=== PATIENT | female | born 1945 | race Caucasian/White ===

== ENCOUNTER 2017-12-13 07:16 | Day surgery (SDC) | payer MEDICARE ==
[2017-12-07 12:53] VITALS: BP 160/72
[2017-12-07 13:08] LABS: BASOPHILS % (AUTO) 0.5 % (0.0-5.0); EOSINOPHILS % (AUTO) 1.3 % (0.0-8.0); HEMATOCRIT 34.4 % (36-48); LYMPHOCYTES % (AUTO) 27.3 % (21.0-51.0); MEAN CORPUSCULAR HEMOGLOBIN 21.9 pg (27.0-33.0); MEAN CORPUSCULAR HGB CONC 31.9 g/dL (32.0-36.0); MEAN CORPUSCULAR VOLUME 68.8 fL (79-99); MONOCYTES % (AUTO) 6.5 % (3.0-13.0); NEUTROPHILS % (AUTO) 64.4 % (40.0-77.0); PLATELET COUNT (AUTO) 310 K/uL (130-400); RED CELL DISTRIBUTION WIDTH 15.1 % (11.0-15.5)
[2017-12-07 13:13] LABS: CREATININE 0.8 mg/dL (0.5-1.5); POTASSIUM 4.2 mmol/L (3.5-5.1)
[2017-12-07 13:20] LABS: INR 0.92 (0.85-1.15); PARTIAL THROMBOPLASTIN TIME 26.2 SEC (26.3-35.5); PROTHROMBIN TIME 9.7 SEC (9.6-11.6)
[2017-12-07 13:46] LABS: BILIRUBIN,URINE Negative (NEGATIVE); COLOR,URINE Yellow (YELLOW); GLUCOSE, URINE (UA) Negative (NEGATIVE); KETONES,URINE Negative (NEGATIVE); LEUKOCYTE ESTERASE ,URINE Moderate (NEGATIVE); NITRATE,URINE Negative (NEGATIVE); OCCULT BLOOD,URINE Negative (NEGATIVE); PH,URINE 7.5 (5.0-8.0); PROTEIN,URINE Negative (NEGATIVE); UROBILINOGEN,URINE 0.2 mg/dL (0.2-1.0)
[2017-12-07 13:51] LABS: APPEARANCE,URINE SLIGHTLY CLOUDY (CLEAR)
[2017-12-07 13:59] LABS: RBC,URINE None Seen /HPF (0-1)
[2017-12-07 14:00] LABS: BACTERIA,URINE Many /HPF (None Seen); WBC,URINE 26-50 /HPF (0-1)
[~2017-12-13] VITALS: Ht 162.6 cm; Wt 75.5 kg
[2017-12-13] VITALS (18 sets, daily range): BP systolic 97–138; BP diastolic 46–78
[~2017-12-13 07:16] MED LIST: AMLODIPINE PO; CALC-744 PO; CETI10TA57 PO; DICY20TA11 PO; ESCI20TA36 PO; LACT1CAP93 PO; MULT-1203 PO; OMEP20TA25 PO
[2017-12-13] MEDS: CEFAZOLIN SODIUM 1 GM VIAL IVP SCH ×2 (09:30→11:00)
[2017-12-13] MEDS ORDERED: LACTATED RINGERS 1000ML 1,000 ML IV ONE (09:36)
[2017-12-13] MEDS: GENTAMICIN 80 MG/NS 100 ML PB 100 ML IV SCH ×2 (10:43→11:00)
[2017-12-13] MEDS ORDERED: MIRT15TA6 PO (10:51)
[2017-12-13] MEDS ORDERED: PROPOFOL 10 MG/ML 20ML VIAL IV ONE (10:55)
[2017-12-13] MEDS ORDERED: SUCCINYLCHOLINE 200MG/10ML SYR ONE (10:55)
[2017-12-13] MEDS ORDERED: LIDOCAINE PF 2% 5ML ABBOJECT ONE (10:55)
[2017-12-13] MEDS ORDERED: FENTANYL CITRATE PF 50 MCG/1 ML 2ML VIAL ONE ×2 (10:56→11:50)
[2017-12-13] MEDS ORDERED: LIDOCAINE HCL 1% 20 ML VIAL ONE (11:06)
[2017-12-13] MEDS ORDERED: NEOMY SULF/POLYMYXIN B SULFATE 1 ML AMPUL IR ONE (11:06)
[2017-12-13] MEDS ORDERED: EPINEPHRINE 1 MG/ML AMPULE ONE (11:06)
[2017-12-13] MEDS ORDERED: EPHEDRINE SULFATE 50 MG/ML AMPULE ONE (11:15)
[2017-12-13] MEDS ORDERED: ONDANSETRON HCL 4 MG/2 ML VIAL ONE (11:33)
[2017-12-13] MEDS ORDERED: DEXAMETHASONE SOD PHOSPHATE 10MG/ML 1ML VIAL ONE (11:33)
[2017-12-13] MEDS ORDERED: ROCURONIUM BROMIDE 10MG/1ML 5ML VL ONE (11:51)
[2017-12-13] MEDS ORDERED: SULFANILAMIDE 120 GM TUBE VG ONE (11:58)
[2017-12-13] MEDS ORDERED: OCTYL 2-CYANOACRYLATE 1 EACH TP ONE (11:58)
[2017-12-13] MEDS ORDERED: TRAMADOL HCL 50 MG TABLET ONE (13:59)
[2018-02-18] MEDS ORDERED: ventolin hfa IH (16:25)
== END 2017-12-13 16:20 | disposition home or self-care (01) ==
LOC: DAH 07:16
PROVIDERS: ATTEND Urology
DX: N36.42 Intrinsic sphincter deficiency (ISD) (principal); N39.46 Mixed incontinence; Z79.891 Long term (current) use of opiate analgesic; Z79.899 Other long term (current) drug therapy; Z79.1 Long term (current) use of non-steroidal anti-inflammatories (NSAID); I82.890 Acute embolism and thrombosis of other specified veins
CPT/HCPCS: 36415; 57288; 80048; 81001; 85025; 85610; 85730; 87088; 87186; 93005; A4215; A4218; A4344; A4600; A4930; C1771; J0171; J0330; J0690; J1100; J1580; J2001; J2405; J2704; J3010 ×2; J3490 ×3; J7030; J7120

== ENCOUNTER 2018-02-21 06:52 | Day surgery (SDC) | payer MEDICARE ==
[2018-02-18 16:01] VITALS: BP 120/62
[2018-02-18 16:04] LABS: BASOPHILS % (AUTO) 0.6 % (0.0-5.0); EOSINOPHILS % (AUTO) 0.3 % (0.0-8.0); HEMATOCRIT 34.9 % (36-48); LYMPHOCYTES % (AUTO) 7.6 % (21.0-51.0); MEAN CORPUSCULAR HEMOGLOBIN 22.3 pg (27.0-33.0); MEAN CORPUSCULAR VOLUME 69.9 fL (79-99); MONOCYTES % (AUTO) 4.1 % (3.0-13.0); NEUTROPHILS % (AUTO) 87.4 % (40.0-77.0); NUCLEATED RED BLOOD CELLS 0.1 % (0.0-0.19); PLATELET COUNT (AUTO) 358 K/uL (130-400); RED CELL DISTRIBUTION WIDTH 16.3 % (11.0-15.5); WHITE BLOOD COUNT (AUTO) 10.6 K/uL (4.8-10.8)
[2018-02-18 16:05] LABS: APPEARANCE,URINE Clear (CLEAR); BILIRUBIN,URINE Negative (NEGATIVE); COLOR,URINE Yellow (YELLOW); GLUCOSE, URINE (UA) Negative (NEGATIVE); KETONES,URINE Negative (NEGATIVE); LEUKOCYTE ESTERASE ,URINE Negative (NEGATIVE); NITRATE,URINE Negative (NEGATIVE); OCCULT BLOOD,URINE Negative (NEGATIVE); PROTEIN,URINE POS 1+ (NEGATIVE); UROBILINOGEN,URINE 0.2 mg/dL (0.2-1.0)
[2018-02-18 16:15] LABS: CREATININE 1.8 mg/dL (0.5-1.5); POTASSIUM 4.1 mmol/L (3.5-5.1)
[2018-02-18 16:28] LABS: BACTERIA,URINE Few /HPF (None Seen); OTHER CASTS, URINE MIXED CELL CASTS 1+ /LPF (None Seen); RBC,URINE 0-1 /HPF (0-1)
[2018-02-18 16:29] LABS: SQUAMOUS EPITHELIAL CELL,UR Few /HPF (0-2)
[~2018-02-21] VITALS: Ht 165.1 cm; Wt 75.8 kg
[2018-02-21] VITALS (16 sets, daily range): BP systolic 119–150; BP diastolic 58–78
[2018-02-21] MEDS: CEFTRIAXONE SODIUM 1 GM IVP SCH ×2 (06:00→09:30)
[~2018-02-21 06:52] MED LIST changes: -CALC-744 PO; -CETI10TA57 PO; -DICY20TA11 PO; -LACT1CAP93 PO; +MIRT15TA6 PO; -MULT-1203 PO; -OMEP20TA25 PO; +ventolin hfa IH
[2018-02-21] MEDS ORDERED: LACTATED RINGERS 1000ML 1,000 ML IV ONE (08:08)
[2018-02-21] MEDS ORDERED: BOTULINUM TOXIN TYPE A 100 UNITS/VIAL INJ SCH (08:30)
[2018-02-21] MEDS ORDERED: BOTULINUM TOXIN TYPE A 100 UNITS/VIAL ONE (08:49)
[2018-02-21] MEDS ORDERED: PROPOFOL 10 MG/ML 20ML VIAL IV ONE (09:37)
== END 2018-02-21 12:10 | disposition home or self-care (01) ==
LOC: DAH 06:52
PROVIDERS: ATTEND Urology
DX: N39.46 Mixed incontinence (principal); I10 Essential (primary) hypertension; Z90.710 Acquired absence of both cervix and uterus; Z90.49 Acquired absence of other specified parts of digestive tract; Z98.890 Other specified postprocedural states
CPT/HCPCS: 36415; 52287; 80048; 81001; 85025; 87088; 93005; A4215; A4218; A4358; A4600; J0585; J0696; J2704; J7120

== ENCOUNTER 2018-09-05 07:53 | Day surgery (SDC) | payer MEDICARE ==
[2018-09-02 11:55] VITALS: BP 143/67
[2018-09-02 12:14] LABS: APPEARANCE,URINE Clear (CLEAR); BILIRUBIN,URINE Negative (NEGATIVE); COLOR,URINE Yellow (YELLOW); GLUCOSE, URINE (UA) Negative (NEGATIVE); KETONES,URINE Negative (NEGATIVE); LEUKOCYTE ESTERASE ,URINE Trace (NEGATIVE); NITRATE,URINE Positive (NEGATIVE); OCCULT BLOOD,URINE Negative (NEGATIVE); PROTEIN,URINE Negative (NEGATIVE); UROBILINOGEN,URINE 0.2 mg/dL (0.2-1.0)
[2018-09-02 12:23] LABS: CREATININE 0.9 mg/dL (0.5-1.5); POTASSIUM 3.6 mmol/L (3.5-5.1)
[2018-09-02 12:27] LABS: BACTERIA,URINE Moderate /HPF (None Seen); RBC,URINE None Seen /HPF (0-1); WBC,URINE 0-1 /HPF (0-1)
[2018-09-02 12:28] LABS: CALCIUM OXALATE CRYSTALS,UR Rare /LPF (None Seen); SQUAMOUS EPITHELIAL CELL,UR Rare /HPF (0-2)
[2018-09-02 12:35] LABS: BASOPHILS % (AUTO) 0.5 % (0.0-5.0); EOSINOPHILS % (AUTO) 0.2 % (0.0-8.0); HEMATOCRIT 35.9 % (36-48); LYMPHOCYTES % (AUTO) 11.1 % (21.0-51.0); MEAN CORPUSCULAR HEMOGLOBIN 22.2 pg (27.0-33.0); MEAN CORPUSCULAR HGB CONC 31.3 g/dL (32.0-36.0); MEAN CORPUSCULAR VOLUME 70.8 fL (79-99); MONOCYTES % (AUTO) 3.1 % (3.0-13.0); NEUTROPHILS % (AUTO) 85.1 % (40.0-77.0); NUCLEATED RED BLOOD CELLS 0.1 % (0.0-0.19); PLATELET COUNT (AUTO) 337 K/uL (130-400); RED BLOOD CELL COUNT(AUTO) 5.07 MIL/uL (4.00-5.50); WHITE BLOOD COUNT (AUTO) 10.7 K/uL (4.8-10.8)
[~2018-09-05] VITALS: Ht 160 cm; Wt 75.2 kg
[2018-09-05] VITALS (14 sets, daily range): BP systolic 114–150; BP diastolic 58–90
[~2018-09-05 07:53] MED LIST changes: +AMIT25TA9 PO; +CALCIUM PO; +CHOL200013 PO; +COLE1TAB2 PO; +FOLI1TAB15 PO; -MIRT15TA6 PO; +PRED5TAB PO; +TRAZ150T79 PO; +VITAMIN B12 PO; -ventolin hfa IH
[2018-09-05] MEDS ORDERED: CEFTRIAXONE SODIUM 1 GM IVP PRN (08:00)
[2018-09-05] MEDS ORDERED: ZOSYN 3.375GM+NS 50ML 50 ML IV ONE (08:21)
[2018-09-05] MEDS ORDERED: LACTATED RINGERS 1000ML 1,000 ML IV ONE (08:21)
[2018-09-05] MEDS ORDERED: ZOSYN 3.375GM+NS 50ML 50 ML IV SCH (08:45)
[2018-09-05] MEDS ORDERED: BOTULINUM TOXIN TYPE A 100 UNITS/VIAL INJ SCH (09:30)
[2018-09-05] MEDS ORDERED: PROPOFOL 10 MG/ML 20ML VIAL IV ONE (10:20)
[2018-09-05] MEDS ORDERED: LIDOCAINE PF 2% 5ML ABBOJECT ONE (10:20)
[2018-09-05] MEDS ORDERED: LIDOCAINE HCL 2% PF 20 ML JEL DISP.SYRIN MM ONE (10:30)
[2018-09-05] MEDS ORDERED: ONDANSETRON HCL 4 MG/2 ML VIAL ONE (10:35)
[2018-09-05] MEDS ORDERED: DEXAMETHASONE SOD PHOSPHATE 10MG/ML 1ML VIAL ONE (10:35)
[2018-09-05] MEDS ORDERED: EPHEDRINE SULFATE 50 MG/ML AMPULE ONE (10:43)
[2018-09-05] MEDS ORDERED: GLYCOPYRROLATE 1 MG/5 ML SYRINGE ONE (10:50)
== END 2018-09-05 12:52 | disposition home or self-care (01) ==
LOC: DAH 07:53
PROVIDERS: ATTEND Urology
DX: N39.46 Mixed incontinence (principal); R46.3 Overactivity; Z90.49 Acquired absence of other specified parts of digestive tract; J40 Bronchitis, not specified as acute or chronic; I10 Essential (primary) hypertension; Z98.890 Other specified postprocedural states; Z79.899 Other long term (current) drug therapy
CPT/HCPCS: 36415; 52287; 80048; 81001; 85025; 87077; 87088; 87186; 93005; 96365; A4358; A4510; A4600; J0585; J1100; J2001; J2405; J2543; J2704; J3490 ×2; J7120 ×2

== ENCOUNTER 2019-10-27 12:05 | Observation (INO) | payer MEDICARE ==
[~2019-10-27] VITALS: Ht 162.6 cm; Wt 77.1 kg
[~2019-10-27 12:05] MED LIST changes: -AMIT25TA9 PO; +AMIT50TA3 PO; +AMLO2.5T4 PO; -AMLODIPINE PO; +BUDE0.5A8 IH; +CALC600T12 PO; -CALCIUM PO; +CYAN1TAB44 PO; +DOXY100C40 PO; +IPRA3AMP24 IH; +METH4TAB3 PO; +SULF500T8 PO; -VITAMIN B12 PO
[2019-10-27 12:35] LABS: BASOPHILS % (AUTO) 0.7 % (0.0-5.0); EOSINOPHILS % (AUTO) 1.3 % (0.0-8.0); HEMATOCRIT 38.9 % (36-48); LYMPHOCYTES % (AUTO) 22.3 % (21.0-51.0); MEAN CORPUSCULAR HEMOGLOBIN 21.5 pg (27.0-33.0); MEAN CORPUSCULAR HGB CONC 30.8 g/dL (32.0-36.0); MEAN CORPUSCULAR VOLUME 69.7 fL (79-99); MONOCYTES % (AUTO) 9.6 % (3.0-13.0); NEUTROPHILS % (AUTO) 65.6 % (40.0-77.0); PLATELET COUNT (AUTO) 484 K/uL (130-400); RED BLOOD CELL COUNT(AUTO) 5.58 MIL/uL (4.00-5.50); RED CELL DISTRIBUTION WIDTH 15.3 % (11.0-15.5); WHITE BLOOD COUNT (AUTO) 9.2 K/uL (4.8-10.8)
[2019-10-27 12:39] LABS: CREATININE 1.8 mg/dL (0.5-1.5); POTASSIUM 3.4 mmol/L (3.5-5.1)
[2019-10-27 12:42] LABS: INR 0.92 (0.85-1.15); PARTIAL THROMBOPLASTIN TIME 25.7 SEC (26.3-35.5); PROTHROMBIN TIME 9.7 SEC (9.6-11.6)
[2019-10-27 12:43] LABS: ALBUMIN 3.8 g/dL (3.5-5.0); BILIRUBIN,TOTAL 0.7 mg/dL (0.2-1.0); TOTAL PROTEIN, SERUM 7.8 g/dL (6.0-8.3)
[2019-10-27] MEDS ORDERED: ACETAMINOPHEN 325 MG TAB ONE (13:49)
[2019-10-27] MEDS ORDERED: FENTANYL CITRATE PF 50 MCG/1 ML 2ML VIAL ONE (17:07)
[2019-10-27] MEDS ORDERED: ASPIRIN 325 MG TABLET ONE (17:07)
[2019-10-27] MEDS ORDERED: LACTULOSE 20 GM/30 ML UDCUP PO PRN (18:00)
[2019-10-27] MEDS ORDERED: DEXTROSE 50%-WATER 50 ML DISP.SYRIN IV PRN (18:00)
[2019-10-27] MEDS ORDERED: ZOLPIDEM TARTRATE 5 MG TAB PO PRN (18:00)
[2019-10-27] MEDS ORDERED: GUAIFENESIN-DM 200/20 MG 10 ML PO PRN (18:00)
[2019-10-27] MEDS ORDERED: NITROGLYCERIN 0.4 MG SL TAB SL PRN (18:00)
[2019-10-27] MEDS ORDERED: POTASSIUM CHLORIDE 10% ELIXIR 20 MEQ/15 ML UDCUP PO PRN (18:00)
[2019-10-27] MEDS ORDERED: ACETAMINOPHEN 325 MG TAB PO PRN ×2 (18:00)
[2019-10-27] MEDS ORDERED: ONDANSETRON HCL 4 MG/2 ML VIAL IV PRN (18:00)
[2019-10-27] MEDS ORDERED: HYDRALAZINE HCL 20 MG/ML VIAL IV PRN (18:00)
[2019-10-27] MEDS ORDERED: LIDOCAINE HCL 2% VISCOUS 30 ML, MAG HYDROX/AL HYDROX/SIMETH 30 ML, BELLADONNA-PHENOBARB... PO SCH ×3 (18:00)
[2019-10-27] MEDS ORDERED: POTASSIUM CHLORIDE 20MEQ/100ML 100 ML IV PRN (18:00)
[2019-10-27] MEDS ORDERED: GLUCAGON 1MG KIT 1 MG ML IM PRN (18:00)
[2019-10-27] MEDS ORDERED: DiphenhydrAMINE HCL 50 MG/ML VIAL IV PRN (18:00)
[2019-10-27] MEDS ORDERED: LIDOCAINE HCL-MPF 1% 2ML VIAL IV PRN (18:00)
[2019-10-27] MEDS ORDERED: MORPHINE SULFATE 2 MG/ML 1ML SYG IV PRN (18:00)
[2019-10-27] MEDS ORDERED: LIDOCAINE HCL 2% VISCOUS 30 ML, MAG HYDROX/AL HYDROX/SIMETH 30 ML, DICYCLOMINE HCL 20 MG PO SCH ×3 (19:00)
--- NOTE | 2019-10-27 19:05 | NUR ---
ADMIT PT JUST GOT WHEELED IN THE ROOM. PT AAOX3, NO DISTRESS NOTED. NO COMPLAINTS VERBALIZED AT THIS TIME. PCP IN AND ADMISSION V/S MONITORED, STABLE. PT PLACED ON TELE MONITOR AND SCD'S TO BLE. ADMISSION CARE DONE. IN FOR MORE CARE AND MANAGEMENT.
[2019-10-27 19:10] VITALS: BP 107/75
[2019-10-27 19:45] LABS: CREATINE KINASE, TOTAL 40 U/L (21-232); MYOGLOBIN 59 ng/mL (10-92); TROPONIN I < 0.04 ng/mL (0.00-0.06)
[2019-10-27] MEDS: INSULIN HUMULIN R 100 UNIT/ML 3ML SQ SCH (20:30)
[2019-10-27] MEDS: SODIUM CHLORIDE 0.9% 1000ML 1,000 ML IV SCH (20:30)
[2019-10-27] MEDS: POTASSIUM CHLORIDE 20 MEQ ERTAB PO PRN ×2 (20:35→22:58)
--- NOTE | 2019-10-27 20:35 | NUR ---
MEDS ADMISSION ASSESSMENT DONE, PLEASE REFER TO CHART. DUE IVF AND MEDS ADMINISTERED, TOLERATED WELL. KEPT RESTED AND COMFORTABLE. ORIENTED TO ROOM AND UNIT. UPDATED TO PLAN OF CARE AT THIS TIME. RE-ITERATED FALL PRECAUTIONS. PT VERBALIZES UNDERSTANDING. WILL MONITOR PT. Addendum: 10/27/19 at 2247 by GILL JAVIER RN RN Amended: Links added.
[2019-10-27] MEDS ORDERED: HYDR12.54 PO (21:44)
[2019-10-27] MEDS ORDERED: PANT40TA25 PO (21:44)
[2019-10-28] VITALS: BP 102/62
[2019-10-28 00:42] LABS: CREATINE KINASE, TOTAL 42 U/L (21-232); MYOGLOBIN 49 ng/mL (10-92); TROPONIN I < 0.04 ng/mL (0.00-0.06)
--- NOTE | 2019-10-28 02:00 | NUR ---
ROUNDS PT FAIRLY ASLEEP WITH RESPIRATIONS EVEN AND UNLABORED. NO NOTED DISTRESS. KEPT UNDISTURBED FOR NOW WILL MONITOR PT. CALL LIGHT WITHIN REACH.
[2019-10-28] MEDS: SODIUM CHLORIDE 0.9% 1000ML 1,000 ML IV SCH ×2 (03:00→13:57)
[2019-10-28 03:29] VITALS: BP 133/76
[2019-10-28] MEDS: INSULIN HUMULIN R 100 UNIT/ML 3ML SQ SCH ×4 (06:20→20:11)
[2019-10-28 06:28] LABS: BASOPHILS % (AUTO) 0.6 % (0.0-5.0); EOSINOPHILS % (AUTO) 1.8 % (0.0-8.0); HEMATOCRIT 34.8 % (36-48); LYMPHOCYTES % (AUTO) 33.3 % (21.0-51.0); MEAN CORPUSCULAR HEMOGLOBIN 21.2 pg (27.0-33.0); MEAN CORPUSCULAR HGB CONC 30.5 g/dL (32.0-36.0); MEAN CORPUSCULAR VOLUME 69.7 fL (79-99); MONOCYTES % (AUTO) 9.7 % (3.0-13.0); NEUTROPHILS % (AUTO) 54.5 % (40.0-77.0); PLATELET COUNT (AUTO) 355 K/uL (130-400); RED BLOOD CELL COUNT(AUTO) 4.99 MIL/uL (4.00-5.50); RED CELL DISTRIBUTION WIDTH 15.2 % (11.0-15.5); WHITE BLOOD COUNT (AUTO) 6.8 K/uL (4.8-10.8)
[2019-10-28 06:50] LABS: CREATINE KINASE, TOTAL 38 U/L (21-232); MYOGLOBIN 38 ng/mL (10-92); TROPONIN I < 0.04 ng/mL (0.00-0.06)
[2019-10-28 06:54] LABS: CREATININE 1.6 mg/dL (0.5-1.5); POTASSIUM 4.6 mmol/L (3.5-5.1); THYROID STIMULATING HORMONE 2.61 uIU/mL (0.36-3.74)
[2019-10-28 08:00] VITALS: BP 114/70
[2019-10-28] MEDS: COLESTIPOL HCL 1 GM PO SCH ×2 (08:16→20:21)
[2019-10-28] MEDS ORDERED: FAMOTIDINE/PF 20 MG/2 ML VIAL IV SCH (09:00)
[2019-10-28] MEDS ORDERED: FLU VACC QS2019-20 36MOS UP/PF 60 MCG/0.5 ML ML IM ONE (09:00)
[2019-10-28] MEDS ORDERED: ENOXAPARIN SODIUM 40 MG/0.4 ML SYRINGE SQ SCH (09:00)
[2019-10-28] MEDS ORDERED: PREDNISONE 5 MG TABLET PO SCH (09:00)
--- NOTE | 2019-10-28 09:23 | NUR ---
CHART REVIEWED, [facility] GENERATED
[2019-10-28 11:00] VITALS: BP 130/68
[2019-10-28 16:00] VITALS: BP 133/83
[2019-10-28 19:07] VITALS: BP 119/82
[2019-10-28] MEDS ORDERED: ASPI-1005 PO (19:41)
--- NOTE | 2019-10-28 20:20 | NUR ---
MEDS SHIFT ASSESSMENT DONE, PLEASE REFER TO CHART. DUE MEDS ADMINISTERED, TOLERATED WELL. PT MADE AWARE OF D/C ORDERS FOR TONIGHT. PT VERBALIZES THAT SHE DOES NOT HAVE A RIDE TO GO HOME, SINCE HER IS ALREADY HOME AND HAD ALREADY TAKEN HIS MEDS FOR THE NIGHT SO IS UNABLE TO DRIVE AND HER FRIEND WHO CAN DRIVE HER IS SITTING WITH SOMEBODY IN [facility]. PT MADE AWARE THAT MD WILL BE CALLED AND RESOURCE NURSE WILL BE MADE AWARE OF SITUATION. RESOURCE NURSE MADE AWARE OF TRANSPORT SITUATION FOR PT. OPTION FOR [employer] [facility] WAS BROUGHT UP. Addendum: 10/29/19 at 0128 by GILL JAVIER RN RN Amended: Links added.
--- NOTE | 2019-10-28 20:35 | NUR ---
RIDE PT WAS MADE AWARE THAT [employer] WILL BE CALLED FOR PT CM DIRECTOR SUGGESTED. PT VERBALIZES THAT SHE DOES NOT HAVE A CLICKER TO OPEN THE GATE IN THEIR SUBDIVISION. PT THEN STATED WILL TRY TO CALL SOMEBODY TO COME GET HER. DIESEL MECHANIC HELPER WILL BE MADE AWARE IF SHE HAS A RIDE.
[2019-10-28] MEDS ORDERED: AMITRIPTYLINE HCL 25 MG TABLET PO SCH (21:00)
[2019-10-28] MEDS ORDERED: AMLODIPINE BESYLATE 2.5 MG TAB PO SCH (21:00)
[2019-10-28] MEDS ORDERED: (Escitalopram Oxalate 20 MG) PO SCH (21:00)
[2019-10-28] MEDS ORDERED: PANTOPRAZOLE SODIUM 40 MG TABLET.DR PO SCH (21:00)
--- NOTE | 2019-10-28 21:20 | NUR ---
D/C PT WAS ABLE TO CALL SOMEBODY FOR A RIDE. RESOURCE NURSE MADE AWARE. D/C PAPERS DONE AND PRINTED. D/C PAPERS AND D/C INSTRUCTIONS GIVEN TO PT. PT VERBALIZES UNDERSTANDING. PIV DISCONTINUED WITH CATHETER INTACT. PCP ASKED TO WHEEL PT DOWN TO ER [facility].
== END 2019-10-28 21:40 | disposition home or self-care (01) ==
LOC: EDH 12:05 → EDHIP 16:50 → 4DH 18:49
PROVIDERS: ADMIT Internal Medicine Critical Care Medicine; ATTEND Internal Medicine Critical Care Medicine
DX: R07.89 Other chest pain (principal); E87.6 Hypokalemia; N17.9 Acute kidney failure, unspecified; I12.9 Hypertensive chronic kidney disease with stage 1 through stage 4 chronic kidney disease, or unspecified chronic kidney disease; N18.9 Chronic kidney disease, unspecified; F32.9 Major depressive disorder, single episode, unspecified; F41.9 Anxiety disorder, unspecified; M35.3 Polymyalgia rheumatica; E78.5 Hyperlipidemia, unspecified; R11.10 Vomiting, unspecified; R19.7 Diarrhea, unspecified; Z23 Encounter for immunization; F17.200 Nicotine dependence, unspecified, uncomplicated; Z90.49 Acquired absence of other specified parts of digestive tract; Z90.710 Acquired absence of both cervix and uterus; Z79.52 Long term (current) use of systemic steroids; Z79.82 Long term (current) use of aspirin; Z79.899 Other long term (current) drug therapy
CPT/HCPCS: 36415 ×2; 71045; 80048; 80053; 80061; 82550 ×4; 82948 ×5; 83874 ×3; 83880; 84439; 84443; 84484 ×5; 85025 ×2; 85610; 85730; 93005 ×4; 96361 ×2; 96372; 96374; 99284; G0008; G0378 ×29; J1650; J3010; J3490; J7030; J7512; Q2035

== ENCOUNTER 2022-04-23 22:36 | Emergency (ER) | payer MEDICARE, OTHER ==
[~2022-04-23] VITALS: Ht 165.1 cm; Wt 70.8 kg
[~2022-04-23 22:36] MED LIST changes: +ASPI-1005 PO; -BUDE0.5A8 IH; -CALC600T12 PO; -CHOL200013 PO; -CYAN1TAB44 PO; +Calcitonin,Salmon,Synthetic NS; -DOXY100C40 PO; -ESCI20TA36 PO; +ESCI20TA38 PO; -FOLI1TAB15 PO; +HYDR12.54 PO; -IPRA3AMP24 IH; -METH4TAB3 PO; +PANT40TA54 PO; -SULF500T8 PO; -TRAZ150T79 PO
[2022-04-23] MEDS ORDERED: SOLU-MEDROL 125MG VIAL IVP ONE (23:00)
[2022-04-23] MEDS ORDERED: IPRATROPIUM/ALBUTEROL SULFATE 3 ML SOLUTION IH ONE (23:00)
[2022-04-24] MEDS ORDERED: ALBUTEROL 0.083% 2.5 MG/3 ML INH IH ONE ×3 (00:30→02:00)
[2022-04-24 01:59] VITALS: BP 142/64
[2022-04-24] MEDS ORDERED: AZITHROMYCIN 250 MG TABLET PO ONE (02:00)
[2022-04-24] MEDS ORDERED: AUD IH (02:48)
[2022-04-24] MEDS ORDERED: AZIT250T9 PO (02:48)
== END 2022-04-24 03:02 | disposition home or self-care (01) ==
LOC: EDH 22:36
DX: J44.1 Chronic obstructive pulmonary disease with (acute) exacerbation (principal); J40 Bronchitis, not specified as acute or chronic; F17.200 Nicotine dependence, unspecified, uncomplicated; Z79.899 Other long term (current) drug therapy; Z79.82 Long term (current) use of aspirin; Z90.49 Acquired absence of other specified parts of digestive tract; Z98.890 Other specified postprocedural states
CPT/HCPCS: 99285; 96374; 71045; 94640 ×3; J2930

== ENCOUNTER 2022-12-28 06:46 | Day surgery (SDC) | payer MEDICARE, OTHER ==
[2022-12-25 12:59] LABS: BASOPHILS % (AUTO) 0.4 % (0.0-5.0); EOSINOPHILS % (AUTO) 0.9 % (0.0-8.0); HEMATOCRIT 32.2 % (36-48); LYMPHOCYTES % (AUTO) 23.8 % (21.0-51.0); MEAN CORPUSCULAR HGB CONC 31.7 g/dL (32.0-36.0); MEAN CORPUSCULAR VOLUME 72.5 fL (79-99); MONOCYTES % (AUTO) 6.7 % (3.0-13.0); PLATELET COUNT (AUTO) 262 K/uL (130-400); RED BLOOD CELL COUNT(AUTO) 4.44 MIL/uL (4.00-5.50); WHITE BLOOD COUNT (AUTO) 5.5 K/uL (4.8-10.8)
[2022-12-25 13:06] LABS: CREATININE 0.8 mg/dL (0.5-1.5)
[2022-12-25 13:41] VITALS: BP 208/112
[2022-12-25 13:48] LABS: APPEARANCE,URINE CLOUDY (CLEAR); BILIRUBIN,URINE NEGATIVE (NEGATIVE); COLOR,URINE LIGHT-YELLOW (YELLOW); GLUCOSE, URINE (UA) NEGATIVE (NEGATIVE); KETONES,URINE NEGATIVE (NEGATIVE); LEUKOCYTE ESTERASE ,URINE 75 Leu/uL (NEGATIVE); NITRATE,URINE 2+ (NEGATIVE); OCCULT BLOOD,URINE NEGATIVE (NEGATIVE); PH,URINE 6.5 (5.0-8.0); PROTEIN,URINE 10 mg/dL (NEGATIVE); UROBILINOGEN,URINE 0.2 mg/dL (0.2-1.0)
[2022-12-25 14:12] LABS: BACTERIA,URINE RARE /HPF (None Seen); MUCUS,URINE RARE LPF (None Seen); SQUAMOUS EPITHELIAL CELL,UR RARE /HPF (0-2)
[2022-12-28] VITALS (18 sets, daily range): BP systolic 141–163; BP diastolic 62–92
[~2022-12-28] VITALS: Ht 162.6 cm; Wt 69.4 kg
[~2022-12-28 06:46] MED LIST changes: +ASCO250T24 PO; -ASPI-1005 PO; +AUD IH; +CALC200T42 PO; +CEFTRIAXONE 1G VIAL ONE; -COLE1TAB2 PO; -HYDR12.54 PO; +IBUP-2070 PO; -PANT40TA54 PO; -PRED5TAB PO; +VITAMIN B12 PO; +VITAMIN D3 PO
[2022-12-28] MEDS ORDERED: BOTULINUM TOXIN TYPE A 100 UNITS/VIAL INJ SCH (07:30)
[2022-12-28] MEDS ORDERED: ALBUTEROL INHALER 90MCG/INH IH ONE (08:15)
[2022-12-28] MEDS ORDERED: ZOSYN 3.375GM+NS 50ML 50 ML IVPB ONE (08:45)
[2022-12-28] MEDS ORDERED: ZOSYN 3.375GM +NS 50ML IVPB ONE (08:49)
[2022-12-28] MEDS ORDERED: FENTANYL CITRATE PF 50 MCG/1 ML 2ML VIAL ONE (08:52)
[2022-12-28] MEDS ORDERED: ROCURONIUM 10MG/1ML SYR 10 MG/ML ML ONE (08:52)
[2022-12-28] MEDS ORDERED: NEOSTIGMINE 5MG/5ML SYR IV ONE (08:52)
[2022-12-28] MEDS ORDERED: GLYCOPYRROLATE 1 MG/5 ML SYRINGE ONE (08:52)
[2022-12-28] MEDS ORDERED: SUCCINYLCHOLINE 200MG/10ML SYR ONE ×2 (08:52→08:53)
[2022-12-28] MEDS ORDERED: ONDANSETRON 4MG INJ ONE (08:52)
[2022-12-28] MEDS ORDERED: PROPOFOL 10 MG/ML 20ML VIAL IV ONE (08:52)
[2022-12-28] MEDS ORDERED: DEXAMETHASONE SOD PHOSPHATE 10MG/ML 1ML VIAL ONE (08:52)
[2022-12-28] MEDS ORDERED: LIDOCAINE PF 100MG/5ML (2%) SYRINGE 5ML ONE ×2 (08:52→08:53)
[2022-12-28] MEDS ORDERED: SUGAMMADEX SODIUM 200 MG/2 ML VIAL IV ONE (09:16)
== END 2022-12-28 11:21 | disposition home or self-care (01) ==
LOC: DAH 06:46
PROVIDERS: ATTEND Urology
DX: N39.46 Mixed incontinence (principal); Z20.822 Contact with and (suspected) exposure to COVID-19; I10 Essential (primary) hypertension; J45.909 Unspecified asthma, uncomplicated; Z79.899 Other long term (current) drug therapy
CPT/HCPCS: 80048; 85025; 87077; 87088; 87186; 87426; 81001; 36415; 71045; 93005; 52287; A6260; A4663; J7120; J3010; J0330 ×2; J3490; J1100; J2710; J2001 ×2; J0696; J2704; J2405; J2543 ×2; J0585; A4358; A4215 ×2; A4223; A4222; A4221; A4600